=== PATIENT | female | born 1965 | race Caucasian/White ===

== ENCOUNTER 2018-11-08 11:31 | Emergency (ER) | payer MEDICAID ==
[~2018-11-08] VITALS: Ht 162.6 cm; Wt 97.7 kg
[2018-11-08 13:31] LABS: BASOPHILS # (AUTO) 0.01 x10^3/uL (0-0.1); BASOPHILS % (AUTO) 0 % (0-1); EOSINOPHILS # (AUTO) 0.65 x10^3/uL (0-0.4); EOSINOPHILS % (AUTO) 10 % (1-7); LYMPHOCYTES # (AUTO) 1.28 x10^3/uL (1-3.4); LYMPHOCYTES % (AUTO) 20 % (22-44); MD NO; MEAN CORPUSCULAR HEMOGLOBIN 31.8 pg (27.0-34.8); MEAN CORPUSCULAR HGB CONC 33.8 g/dL (32.4-35.8); MEAN CORPUSCULAR VOLUME 93.9 fL (80-100); MEAN PLATELET VOLUME 8.8 fL (7.4-10.4); MONOCYTES # (AUTO) 0.48 x10^3/uL (0.2-0.8); MONOCYTES % (AUTO) 7 % (2-9); NEUTROPHILS # (AUTO) 4.07 x10^3/uL (1.8-6.8); NEUTROPHILS % (AUTO) 63 % (42-75); PLATELET COUNT 335 x10^3/uL (130-400); RED BLOOD COUNT 3.99 x10^6/uL (3.82-5.3); RED CELL DISTRIBUTION WIDTH 13.9 % (9.6-15.2)
[2018-11-08 13:43] LABS: ALBUMIN 3.9 g/dL (3.4-5.0); CALCIUM 8.8 mg/dL (8.5-10.1); CHLORIDE 110 mmol/L (98-107)
[2018-11-08 13:49] LABS: ALANINE AMINOTRANSFERASE 54 U/L (12-78); ALKALINE PHOSPHATASE 149 U/L (45-117); ANION GAP 5 mmol/L (5-15); BILIRUBIN,TOTAL 0.3 mg/dL (0.2-1.0); CREATININE 0.82 mg/dL (0.55-1.02); TOTAL PROTEIN 7.6 g/dL (6.4-8.2)
[2018-11-08 14:08] VITALS: BP 167/104
--- NOTE | 2018-11-08 14:23 | NUR ---
pt to room from lobby. pt to bathroom to collect urine sample.
[2018-11-08] MEDS ORDERED: IBUP-1223 PO (14:31)
[2018-11-08] MEDS ORDERED: NAPR-685 PO (14:31)
--- NOTE | 2018-11-08 14:31 | NUR ---
Urine collected & sent. Intermittent ABD cramping, pain free at this time. Describes one episode of hard, small stool w/ approx 1tbsp BRB in stool CHALK [employer]. Has been seen by [facility] & lab results back.
[2018-11-08 14:44] LABS: MICROSCOPIC NOT IND
[2018-11-08 14:52] LABS: CULTURE INDICATED? NO
--- NOTE | 2018-11-08 15:37 | NUR ---
Patient given discharge instructions and they have confirmed that they understand the instructions. Patient ambulatory with steady gait.
== END 2018-11-08 15:38 | disposition home or self-care (01) ==
LOC: ED 15:27
DX: K62.5 Hemorrhage of anus and rectum (principal); J45.909 Unspecified asthma, uncomplicated
CPT/HCPCS: 36415; 80053; 81003; 83690; 85025; 99283

== ENCOUNTER 2019-05-13 13:01 | Outpatient (CLI) ==
[~2019-05-13 13:01] MED LIST: IBUP-1223 PO; NAPR-685 PO
[2019-05-13] MEDS ORDERED: ALBU18HF INH (13:38)
== END 2019-05-13 23:59 | disposition home or self-care (01) ==
LOC: STAR 13:01
PROVIDERS: ATTEND Obstetrics & Gynecology Female Pelvic Medicine and Reconstructive Surgery
DX: Z02.9 Encounter for administrative examinations, unspecified (principal)

== ENCOUNTER 2019-05-23 11:28 | Day surgery (SDC) | payer MEDICAID ==
[~2019-05-23] VITALS: Ht 162.6 cm; Wt 96.1 kg
[~2019-05-23 11:28] MED LIST changes: +ALBU18HF INH
[2019-05-23] MEDS ORDERED: LACTATED RINGERS 1,000 ML IV SCH (11:38)
[2019-05-23 12:00] VITALS: BP 128/88
[2019-05-23] MEDS ORDERED: ONDANSETRON ODT 8 MG PO ONE (12:00)
[2019-05-23] MEDS ORDERED: GABAPENTIN 300 MG CAPSULE PO ONE (12:00)
[2019-05-23] MEDS ORDERED: SCOPOLAMINE PATCH, 1.5MG PATCH.TD72 TD ONE (12:00)
[2019-05-23] MEDS ORDERED: ACETAMINOPHEN 500 MG TABLET PO ONE (12:00)
[2019-05-23] MEDS ORDERED: DEXAMETHASONE 4 MG/ML, 1ML ONE ×2 (13:14)
[2019-05-23] MEDS ORDERED: ROCURONIUM 10MG/ML,5ML ONE (13:14)
[2019-05-23] MEDS ORDERED: PROPOFOL 10 MG/ML, 20ML ONE (13:14)
[2019-05-23] MEDS ORDERED: MIDAZOLAM 1 MG/ML, 2ML ONE (13:14)
[2019-05-23] MEDS ORDERED: CEFAZOLIN 1,000 MG ONE ×2 (13:14)
[2019-05-23] MEDS ORDERED: LIDOCAINE-MPF 2% ,5ML ONE ×2 (13:15)
[2019-05-23] MEDS ORDERED: KETOROLAC 30 MG/1 ML ONE (13:15)
[2019-05-23] MEDS ORDERED: GENTAMICIN 80 MG/2 ML ONE (13:17)
[2019-05-23] MEDS ORDERED: VANCOMYCIN 500 MG ONE (13:17)
[2019-05-23] MEDS ORDERED: EPINEPHRINE 1 MG/ML, 1ML ONE (13:17)
[2019-05-23] MEDS ORDERED: BUPIVACAINE/PF 0.25% ONE (13:17)
[2019-05-23] MEDS ORDERED: METOCLOPRAMIDE 5 MG/ML, 2ML ONE ×2 (13:24→14:40)
[2019-05-23] MEDS ORDERED: OXYcodone 5 MG/5 ML ORAL.SOL UDC PO PRN (13:30)
[2019-05-23] MEDS ORDERED: hydrALAzine 20 MG/ML, 1ML IV PRN (13:30)
[2019-05-23] MEDS ORDERED: LORazepam 2 MG/ML, 1ML IVPush PRN (13:30)
[2019-05-23] MEDS ORDERED: HYDROmorphone 2 MG/ML, 1ML IVPush PRN (13:30)
[2019-05-23] MEDS ORDERED: LABETALOL 5MG/ML, 20ML IV PRN (13:30)
[2019-05-23] MEDS ORDERED: ONDANSETRON 2MG/ML, 2ML IV PRN (13:30)
[2019-05-23] MEDS ORDERED: FENTANYL PF 100 MCG/2ML IV PRN (13:30)
[2019-05-23] MEDS ORDERED: DIPHENHYDRAMINE 50 MG/ML, 1ML IVPush PRN (13:30)
[2019-05-23] MEDS ORDERED: MEPERIDINE/PF 25MG/ML,1ML IVPush PRN (13:30)
[2019-05-23] MEDS ORDERED: GLYCOPYRROLATE 0.2MG/1ML, 5ML ONE (13:52)
[2019-05-23] MEDS ORDERED: PHENYLEPHRINE 10 MG/ML ONE (14:40)
[2019-05-23] MEDS ORDERED: MAGNESIUM SULFATE 8 MEQ/2 ML, 2ML ONE (14:40)
[2019-05-23] MEDS ORDERED: FENTANYL PF 100 MCG/2ML ONE (16:43)
[2019-05-23] MEDS ORDERED: OXYcodone 5 MG/5 ML ORAL.SOL UDC ONE (16:43)
== END 2019-05-23 21:15 | disposition home or self-care (01) ==
LOC: OUT 11:28 → 4NE 19:12 → OUT 21:15
PROVIDERS: ATTEND Obstetrics & Gynecology Female Pelvic Medicine and Reconstructive Surgery
DX: R19.09 Other intra-abdominal and pelvic swelling, mass and lump (principal); R10.2 Pelvic and perineal pain; N81.2 Incomplete uterovaginal prolapse; N39.46 Mixed incontinence; N80.0 Endometriosis of uterus; D27.0 Benign neoplasm of right ovary; J45.909 Unspecified asthma, uncomplicated; K80.20 Calculus of gallbladder without cholecystitis without obstruction; M19.90 Unspecified osteoarthritis, unspecified site; Z79.899 Other long term (current) drug therapy; Z88.7 Allergy status to serum and vaccine; Z98.890 Other specified postprocedural states
CPT/HCPCS: 00840; 57265; 57282; 57288; 58554; 88307; C1771; J0171; J0690; J1100; J1580; J1885; J2250; J2370; J2704; J2765; J3010; J3370; J3475; J3490; J7120; G0378

== ENCOUNTER 2021-01-17 23:47 | Emergency (ER) | payer MEDICAID ==
[~2021-01-17] VITALS: Ht 162.6 cm; Wt 86.6 kg
[2021-01-17 23:52] VITALS: BP 130/90
--- NOTE | 2021-01-18 01:01 | NUR ---
PATIENT UNDERSTANDS THAT SHE SHOULD NOT DRIVE OR OPERATE ANY MACHINERY WHILE TAKING FLEXERIL THAT SHE WAS PRESCRIBED. PATIENT UNDERSTANDS THAT MEDICATION CAN MAKE HER DROWSY
== END 2021-01-18 00:47 | disposition home or self-care (01) ==
LOC: ED 23:50
DX: S93.491A Sprain of other ligament of right ankle, initial encounter (principal); S46.811A Strain of other muscles, fascia and tendons at shoulder and upper arm level, right arm, initial encounter; S76.012A Strain of muscle, fascia and tendon of left hip, initial encounter; J45.909 Unspecified asthma, uncomplicated; V89.2XXA Person injured in unspecified motor-vehicle accident, traffic, initial encounter; Y93.89 Activity, other specified; Y92.410 Unspecified street and highway as the place of occurrence of the external cause; Y99.8 Other external cause status
CPT/HCPCS: 99283